=== PATIENT | male | born 2000 | race Caucasian/White ===

== ENCOUNTER 2022-11-12 16:30 | Emergency (ER) | payer OTHER ==
[2022-11-12 17:56] LABS: STREP SCREEN NEGATIVE (NEGATIVE)
[2022-11-12 19:13] LABS: BASO # 0.02 K/mm3 (0.02-0.10); EOS # 0.06 K/mm3 (0.04-0.40); EOS % 0.7 % (0.0-4.0); HEMATOCRIT 45.5 % (36.0-47.0); HEMOGLOBIN 15.8 g/dL (12.5-16.1); LYMPH# 0.69 K/mm3 (1.50-4.00); MEAN CELL VOLUME 86 fl (78-95); MEAN CORPUSCULAR HEMOGLOBIN 30 pg (26-32); MEAN CORPUSCULAR HGB CONC 35 g/dL (33-37); MEAN PLATELET VOLUME 8.8 fl (7.4-10.4); MONO # 0.28 K/mm3 (0.20-0.80); NEU # 7.75 K/mm3 (1.40-6.50); PLATELET COUNT 249 K/mm3 (130-400); RED CELL DISTRIBUTION WIDTH 11.8 % (11.5-14.5); WHITE BLOOD COUNT 8.8 K/mm3 (4.8-10.8)
[2022-11-12 19:23] LABS: ALBUMIN 4.8 g/dL (3.5-5.0); POTASSIUM 4.6 mmol/L (3.5-5.1)
[2022-11-12 19:25] LABS: CALCIUM 9.5 mg/dL (8.3-10.5)
[2022-11-12 19:26] LABS: TOTAL PROTEIN 8.1 g/dL (6.4-8.3)
[2022-11-12 20:42] LABS: D-DIMER 0.72 mg/L FEU (0.15-0.50)
[2022-11-12 22:56] VITALS: BP 134/71
== END 2022-11-12 22:57 | disposition home or self-care (01) ==
LOC: ED 16:30
PROVIDERS: Nurse Practitioner
DX: J98.8 Other specified respiratory disorders (principal); Z28.310 Unvaccinated for COVID-19; Z20.822 Contact with and (suspected) exposure to COVID-19